=== PATIENT | male | born 1965 | race Two or more races ===

== ENCOUNTER 2018-02-12 12:40 | Emergency (ER) | payer OTHER ==
[~2018-02-12] VITALS: Ht 175.3 cm; Wt 83.9 kg
[2018-02-12] MEDS ORDERED: SODIUM CHLORIDE 0.9% 1,000 ML IV ONE (13:02)
[2018-02-12] MEDS ORDERED: MECLIZINE HCL 25 MG TAB PO ONE (13:15)
[2018-02-12] MEDS: FUROSEMIDE 20 MG/2 ML VIAL IV ONE ×2 (14:42→14:56)
[2018-02-12 15:06] LABS: Albumin 3.8 g/dL (3.4-5.0); BUN/Creatinine Ratio 26.1; Bilirubin, Total 0.4 mg/dL (0.2-1.0); Potassium 3.3 mmol/L (3.5-5.1); Total Protein 7.9 g/dL (6.4-8.2)
[2018-02-12 15:07] LABS: Basophils # (auto) 0 uL; Basophils % (auto) 0.3 % (0.0-2.0); Eosinophils # (auto) 0.1 uL; Eosinophils % (auto) 1.7 % (0.0-7.0); Hematocrit 40.9 % (41.0-53.0); Hemoglobin 14.2 g/dL (13.5-17.5); Lymphocytes # (auto) 1.8 uL; Lymphocytes % (auto) 21.9 % (10.0-50.0); Mean Corpuscular Hemoglobin 29.4 pg (28.0-32.0); Mean Corpuscular Hgb Conc. 34.8 g/dL (32.0-36.0); Mean Corpuscular Volume 84.5 fL (80.0-100.0); Monocytes # (auto) 0.5 uL; Monocytes % (auto) 6.3 % (0.0-12.0); Neutrophils # (auto) 5.6 uL; Neutrophils % (auto) 69.8 % (37.0-80.0); Nucleated Red Blood Cells % 0.1 %; Platelet Count (auto) 289 10^3/uL (140-450); Red Blood Cells 4.84 10^6/uL (4.5-5.90); Red Cell Distribution Width 13.5 % (11.8-14.3)
[2018-02-12 15:26] LABS: Urine WBC None Seen /hpf (0 - 3)
[2018-02-12] MEDS ORDERED: POTASSIUM EFFERVESENT TAB 25 MEQ PO ONE (15:30)
[2018-02-12 15:48] VITALS: BP 143/82
[2018-02-12 15:56] LABS: Urine Bacteria NONE SEEN /hpf (None Seen); Urine Blood Negative /uL (Negative); Urine Mucus FEW (None Seen); Urine Specific Gravity 1.004 (1.001-1.035)
== END 2018-02-12 16:00 | disposition home or self-care (01) ==
LOC: EDBD 12:40 → ER 12:40
DX: H81.13 Benign paroxysmal vertigo, bilateral (principal); E87.6 Hypokalemia; I10 Essential (primary) hypertension; J31.0 Chronic rhinitis
CPT/HCPCS: 36415; 70450; 80053; 81001; 83735; 85025; 96361; 96374; 99284; J1940; J7030; J8597